=== PATIENT | male | born 1965 | race Caucasian/White ===

== ENCOUNTER 2020-03-21 21:58 | Inpatient (IN) ==
[2020-03-21] MEDS ORDERED: *HR* LORazepam 2 MG/ML VIAL IVP ONE (22:33)
[2020-03-21 22:44] LABS: Basophils # 0.1 K/mcL (0.0-0.2); Basophils % 0.3 %; Eosinophils % 0.2 %; Hematocrit 46.3 % (37.5-50.1); Immature Granulocytes % 0.7 % (0-4); Lymphocytes # 1.4 K/mcL (0.6-4.6); Lymphocytes % 7.3 %; Mean Corpuscular HGB Conc 34.6 g/dL (31.6-35.5); Mean Corpuscular Hemoglobin 30.8 pg (28.0-33.3); Mean Platelet Volume 9.2 fL (9.4-12.4); Monocytes # 0.9 K/mcL (0.0-1.3); Monocytes % 4.5 %; Neutrophils # 17.1 K/mcL (1.6-8.9); Platelet Count 283 K/mcL (140-400); Red Cell Distribution Width 12.1 % (11.5-14.5); White Blood Count 19.7 K/mcL (4.3-11.1)
[2020-03-21 22:59] LABS: Acetaminophen < 10 mcg/mL (10-20); Alanine Aminotransferase 18 Units/L (7-52); Albumin 4.3 g/dL (3.5-5.7); Albumin/Globulin Ratio 1.7 (1.1-2.2); Alkaline Phosphatase 96 Units/L (34-104); Aspartate Amino Transferase 17 Units/L (13-39); BUN/Creatinine Ratio 16 (6-26); Bilirubin,Total 0.3 mg/dL (0.3-1.0); Blood Urea Nitrogen 15 mg/dL (6-20); Calcium 9.3 mg/dL (8.6-10.3); Carbon Dioxide 21 mEq/L (23-29); Chloride 100 mEq/L (98-107); Chol/HDL Ratio 3.2 (0-4.9); Cholesterol 162 mg/dL (< 200); Ethanol < 10 mg/dL (Less than 10); Globulin 2.6 g/dL (2.4-3.5); Glucose 208 mg/dL (70-105); HDL Cholesterol 51 mg/dL (40-59); Iron 60 mcg/dL (65-175); LDL Cholesterol,Calculated 100 mg/dL (< 100); Osmolality,Calculated 293 (280-300); Salicylate < 2.5 mg/dL (15.0-30.0); Sodium 138 mEq/L (136-145); Total Protein 6.9 g/dL (6.4-8.9); Triglycerides 56 mg/dL (< 150); eGFR For African Americans > 60 (> 60); eGFR For Non-African Americans > 60 (> 60)
[2020-03-21 23:28] LABS: Bilirubin,Urine Negative (Negative); Blood,Urine Negative (Negative); Clarity,Urine Clear (Clear); Color,Urine Yellow (Yellow); Glucose,Urine (UA) 150 mg/dL (Normal); Hyaline Casts,Urine Few per lpf (None Seen); Ketones,Urine 10 mg/dL (Negative); Leukocyte Esterase,Urine Negative (Negative); Mucus,Urine Few per lpf (None-Few); Nitrite,Urine Negative (Negative); Protein,Urine Negative (Neg-Trace); Specific Gravity,Urine 1.011 (1.010-1.025); Urobilinogen,Urine Normal (Normal); WBC,Urine 0-3 per hpf (0-3)
[2020-03-21 23:35] LABS: Amphetamine Screen,Urine Negative ng/mL (Cutoff=1000); Barbiturate Screen,Urine Negative ng/mL (Cutoff=200); Benzodiazepines Screen,Urine Negative ng/mL (Cutoff=200); Cannabinoid Screen,Urine Negative ng/mL (Cutoff = 50); Cocaine Screen,Urine Negative ng/mL (Cutoff= 300); Opiate Screen,Urine Negative ng/mL (Cutoff=300); Phencyclidine Screen,Urine Negative ng/mL (Cutoff=25)
[2020-03-22 00:10] LABS: Adenovirus Not Detected (Not Detect); Bordetella Pertussis Not Detected (Not Detect); Chlamydophila pneumoniae Not Detected (Not Detect); Coronavirus 229E Not Detected (Not Detect); Coronavirus HKU1 Not Detected (Not Detect); Coronavirus NL63 Not Detected (Not Detect); Coronavirus OC43 Not Detected (Not Detect); Human Metapneumovirus Not Detected (Not Detect); Human Rhinovirus/Enterovirus Not Detected (Not Detect); Influenza A Subtype 2009 H1 Not Detected (Not Detect); Influenza B Not Detected (Not Detect); Mycoplasma pneumoniae Not Detected (Not Detect); Parainfluenza Virus 1 Not Detected (Not Detect); Parainfluenza Virus 2 Not Detected (Not Detect); Parainfluenza Virus 3 Not Detected (Not Detect); Parainfluenza Virus 4 Not Detected (Not Detect); Respiratory Syncytial Virus Not Detected (Not Detect); SARS-CoV-2 Not Detected (Not Detect)
[2020-03-22] MEDS ORDERED: *HR* LORazepam 2 MG/ML VIAL IVP ONE (00:28)
[2020-03-22] MEDS ORDERED: Ondansetron 4 MG/2 ML VIAL IVP ONE (00:29)
[2020-03-22] MEDS ORDERED: Ondansetron 4 MG/2 ML VIAL ONE (00:31)
[2020-03-22] MEDS ORDERED: 0.9 % Sodium Chloride 1,000 ML IV ONE (00:55)
[2020-03-22] MEDS ORDERED: 0.9 % Sodium Chloride 1,000 ML ONE (00:58)
[2020-03-22] MEDS ORDERED: MOM Conc 10 ML UD.LIQ PO PRN (04:43)
[2020-03-22] MEDS ORDERED: Acetaminophen 325 MG TABLET PO PRN (04:43)
[2020-03-22] MEDS ORDERED: Haloperidol Lactate 5 MG/ML VIAL IM PRN (04:43)
[2020-03-22] MEDS ORDERED: haloperidoL 5 MG TABLET PO PRN (04:43)
[2020-03-22] MEDS ORDERED: Mag Hydrox/Al Hydrox/Simeth 30 ML UDC PO PRN (04:43)
[2020-03-22] MEDS ORDERED: QUEtiapine Fumarate 100 MG TABLET PO ONE (05:00)
[2020-03-22 07:53] LABS: Estimated Average Glucose 117 mg/dl; Hemoglobin A1C 5.7 %
[2020-03-22] MEDS: QUEtiapine Fumarate 25 MG TABLET PO SCH (10:15)
[2020-03-22 10:54] LABS: Basophils % 0.1 %; Hematocrit 44.2 % (37.5-50.1); Hemoglobin 15.1 g/dL (12.9-16.9); Immature Granulocytes % 0.5 % (0-4); Lymphocytes # 1.4 K/mcL (0.6-4.6); Mean Corpuscular HGB Conc 34.2 g/dL (31.6-35.5); Mean Corpuscular Hemoglobin 31.2 pg (28.0-33.3); Mean Corpuscular Volume 91.3 fL (83.0-100.0); Mean Platelet Volume 9.2 fL (9.4-12.4); Monocytes % 5.8 %; Neutrophils # 14.8 K/mcL (1.6-8.9); Platelet Count 262 K/mcL (140-400); Red Blood Count 4.84 M/mcL (4.19-5.50); Red Cell Distribution Width 12.2 % (11.5-14.5); Segmented Neutrophils % 85.6 %; White Blood Count 17.3 K/mcL (4.3-11.1)
[2020-03-22 11:25] LABS: Alanine Aminotransferase 18 Units/L (7-52); Albumin 4.4 g/dL (3.5-5.7); Albumin/Globulin Ratio 1.9 (1.1-2.2); Alkaline Phosphatase 101 Units/L (34-104); Aspartate Amino Transferase 21 Units/L (13-39); BUN/Creatinine Ratio 12 (6-26); Bilirubin,Total 0.3 mg/dL (0.3-1.0); Blood Urea Nitrogen 12 mg/dL (6-20); Calcium 9.9 mg/dL (8.6-10.3); Carbon Dioxide 23 mEq/L (23-29); Chloride 98 mEq/L (98-107); Globulin 2.3 g/dL (2.4-3.5); Glucose 122 mg/dL (70-105); Osmolality,Calculated 279 (280-300); Potassium 4.3 mEq/L (3.5-5.1); Sodium 134 mEq/L (136-145); Total Protein 6.7 g/dL (6.4-8.9); eGFR For African Americans > 60 (> 60); eGFR For Non-African Americans > 60 (> 60)
[2020-03-22] MEDS: hydrOXYzine pamoate 25 MG CAPSULE PO PRN (21:11)
[2020-03-22] MEDS: traZODone 50 MG TABLET PO PRN (21:11)
[2020-03-23] MEDS: QUEtiapine Fumarate 25 MG TABLET PO SCH (10:49)
[2020-03-23] MEDS ORDERED: QUEtiapine Fumarate 25 MG TABLET PO PRN (10:55)
[2020-03-23] MEDS: hydrOXYzine pamoate 25 MG CAPSULE PO PRN (20:27)
[2020-03-23] MEDS ORDERED: QUEtiapine Fumarate 100 MG TABLET PO SCH ×2 (21:00)
[2020-03-23] MEDS: traZODone 50 MG TABLET PO PRN (23:05)
[2020-03-24] MEDS: QUEtiapine Fumarate 100 MG TABLET PO SCH (20:56)
[2020-03-24] MEDS: hydrOXYzine pamoate 25 MG CAPSULE PO PRN (20:57)
[2020-03-25] MEDS: Thiamine (B-1) 100 MG TABLET PO SCH ×2 (11:52→20:08)
[2020-03-25 13:31] LABS: Basophils % 0.5 %; Eosinophils # 0.2 K/mcL (0.0-0.6); Eosinophils % 1.8 %; Hematocrit 46.2 % (37.5-50.1); Hemoglobin 14.8 g/dL (12.9-16.9); Immature Granulocytes % 0.3 % (0-4); Lymphocytes # 1.2 K/mcL (0.6-4.6); Mean Corpuscular Hemoglobin 29.8 pg (28.0-33.3); Mean Corpuscular Volume 93.1 fL (83.0-100.0); Mean Platelet Volume 9.2 fL (9.4-12.4); Monocytes # 0.5 K/mcL (0.0-1.3); Monocytes % 5.5 %; Neutrophils # 6.8 K/mcL (1.6-8.9); Platelet Count 236 K/mcL (140-400); Red Blood Count 4.96 M/mcL (4.19-5.50); Red Cell Distribution Width 12.3 % (11.5-14.5); Segmented Neutrophils % 77.9 %; White Blood Count 8.7 K/mcL (4.3-11.1)
[2020-03-25 13:42] LABS: Alanine Aminotransferase 20 Units/L (7-52); Albumin 3.6 g/dL (3.5-5.7); Albumin/Globulin Ratio 1.6 (1.1-2.2); Alkaline Phosphatase 78 Units/L (34-104); Aspartate Amino Transferase 22 Units/L (13-39); BUN/Creatinine Ratio 16 (6-26); Bilirubin,Total 0.4 mg/dL (0.3-1.0); Blood Urea Nitrogen 14 mg/dL (6-20); Calcium 9.3 mg/dL (8.6-10.3); Carbon Dioxide 30 mEq/L (23-29); Chloride 102 mEq/L (98-107); Globulin 2.3 g/dL (2.4-3.5); Glucose 79 mg/dL (70-105); Osmolality,Calculated 285 (280-300); Potassium 4.1 mEq/L (3.5-5.1); Sodium 138 mEq/L (136-145); Total Protein 5.9 g/dL (6.4-8.9); eGFR For African Americans > 60 (> 60); eGFR For Non-African Americans > 60 (> 60)
[2020-03-25] MEDS: QUEtiapine Fumarate 100 MG TABLET PO SCH (20:08)
[2020-03-25] MEDS: hydrOXYzine pamoate 25 MG CAPSULE PO PRN (20:08)
[2020-03-26] MEDS: Thiamine (B-1) 100 MG TABLET PO SCH ×2 (09:30→20:16)
[2020-03-26] MEDS: ARIPiprazole 5 MG TABLET PO SCH (20:15)
[2020-03-26] MEDS: QUEtiapine Fumarate 100 MG TABLET PO SCH (20:16)
[2020-03-26] MEDS: hydrOXYzine pamoate 25 MG CAPSULE PO PRN (20:16)
[2020-03-27] MEDS: Thiamine (B-1) 100 MG TABLET PO SCH ×2 (08:49→20:13)
[2020-03-27] MEDS: QUEtiapine Fumarate 100 MG TABLET PO SCH (20:13)
[2020-03-27] MEDS: ARIPiprazole 5 MG TABLET PO SCH (20:13)
[2020-03-27] MEDS: hydrOXYzine pamoate 25 MG CAPSULE PO PRN (20:13)
[2020-03-27] MEDS: traZODone 50 MG TABLET PO PRN (20:15)
[2020-03-28] MEDS: Thiamine (B-1) 100 MG TABLET PO SCH ×2 (09:17→20:18)
[2020-03-28] MEDS: QUEtiapine Fumarate 100 MG TABLET PO SCH (20:18)
[2020-03-28] MEDS: ARIPiprazole 5 MG TABLET PO SCH (20:18)
[2020-03-29] MEDS: Thiamine (B-1) 100 MG TABLET PO SCH ×2 (08:22→20:13)
[2020-03-29] MEDS ORDERED: polyethylene glycoL 3350 17 GM POWD.PACK PO PRN (10:53)
[2020-03-29] MEDS: hydrOXYzine pamoate 25 MG CAPSULE PO PRN ×2 (15:49→21:54)
[2020-03-29] MEDS: ARIPiprazole 5 MG TABLET PO SCH (20:13)
[2020-03-29] MEDS: QUEtiapine Fumarate 100 MG TABLET PO SCH (20:13)
[2020-03-29] MEDS: traZODone 50 MG TABLET PO PRN (21:55)
[2020-03-30] MEDS: Thiamine (B-1) 100 MG TABLET PO SCH ×2 (08:41→20:09)
[2020-03-30] MEDS: QUEtiapine Fumarate 100 MG TABLET PO SCH (20:09)
[2020-03-30] MEDS: Lithium Carbonate 300 MG CAPSULE PO SCH (20:09)
[2020-03-30] MEDS: traZODone 50 MG TABLET PO PRN (21:25)
[2020-03-30] MEDS: hydrOXYzine pamoate 25 MG CAPSULE PO PRN (21:25)
[2020-03-31] MEDS: Thiamine (B-1) 100 MG TABLET PO SCH ×2 (08:34→20:56)
[2020-03-31] MEDS: traZODone 50 MG TABLET PO PRN (20:56)
[2020-03-31] MEDS: hydrOXYzine pamoate 25 MG CAPSULE PO PRN (20:56)
[2020-03-31] MEDS: Lithium Carbonate 300 MG CAPSULE PO SCH (20:56)
[2020-03-31] MEDS: QUEtiapine Fumarate 100 MG TABLET PO SCH (20:56)
[2020-04-01] MEDS: Thiamine (B-1) 100 MG TABLET PO SCH ×2 (09:54→21:58)
[2020-04-01] MEDS: traZODone 50 MG TABLET PO PRN (21:58)
[2020-04-01] MEDS: Lithium Carbonate 300 MG CAPSULE PO SCH (21:58)
[2020-04-01] MEDS: hydrOXYzine pamoate 25 MG CAPSULE PO PRN (21:58)
[2020-04-01] MEDS: QUEtiapine Fumarate 100 MG TABLET PO SCH (21:58)
[2020-04-02 11:10] VITALS: BP 120/85
[2020-04-02] MEDS: Thiamine (B-1) 100 MG TABLET PO SCH (11:35)
== END 2020-04-02 13:55 | disposition home or self-care (01) ==
LOC: EMEROOARM 21:58 → 1ANU 03-22 04:40
PROVIDERS: ADMIT Psychiatry & Neurology Psychiatry; ATTEND Psychiatry & Neurology Psychiatry